=== PATIENT | male | born 1965 | race Caucasian/White ===

== ENCOUNTER 2025-02-04 11:54 | Emergency (ER) | payer OTHER, SELFPAY ==
[2025-02-04 12:09] VITALS: BP 119/90
--- NOTE | 2025-02-04 13:53 | ED.GENMED ---
History of Present Illness
General
Chief Complaint: Musculo-Skeletal Complaint
Source: patient
Exam Limitations: none
Time Seen by Provider: 02/04/25 13:35
Nursing documentation reviewed up to this point in time: agreed with
History of Present Illness
History of Present Illness:
59-year-old male presenting to the emergency department today with concerns of right upper arm discomfort over the past 4 days after tripping and falling landing directly on his right arm 4 days ago ongoing discomfort since. Has noticed bruising
since. Did not hit his head did not lose consciousness not on blood thinners.
Review of Systems
Review of Systems
Allergies reviewed?: Yes
All Other Systems: ROS reviewed and negative except as documented in HPI and ROS
Phy Exam
Physical Exam
Physical Exam:
GENERAL: Alert , in no apparent distress
EYE: pupils equal and reactive
NECK: Supple, no significant adenopathy.
ENT: o/p clr, mmm.
CARDIAC: Regular rate and rhythm .
LUNGS: Clear breath sounds bilaterally, no acute respiratory distress, no wheezes/rales/rhonchi
ABDOMEN: Soft, without focal tenderness, no r/g, no cvat
NEUROLOGICAL: Alert and oriented, no focal neuro deficits
SKIN: Warm and dry, skin intact.
MUSCULOSKELETAL: Significant ecchymosis and tenderness to palpation to the proximal right upper arm, no discomfort to the shoulder girdle, scapula or clavicle. No pain to the elbow forearm wrist or hand. Significant discomfort and inability to
abduct the right shoulder, well perfused.
PSYCH: Normal and appropriate interaction.
Course
Orders/Labs/Results
Orders:
Orders
02/04/25 12:12
Humerus, Right 2 Views [CR Humerus - Right Min 2 View*] Urgent
Comment:
Reason For Exam: fall
02/04/25 13:52
Sling Right-Treatment ONCE
Vital Signs
Initial and Last Documented VS:
Initial Vital Signs
Temp Pulse Resp BP Pulse Ox
98.2 F 85 16 119/90 98
02/04/25 12:09 02/04/25 12:02/04/25 12:02/04/25 12:09 02/04/25 12:09
Last Documented Vital Signs
Temp Pulse Resp BP Pulse Ox
98.2 F 85 16 119/90 98
02/04/25 12:09 02/04/25 12:09 02/04/25 12:09 02/04/25 12:09 02/04/25 12:09
MDM/Problems Addressed
MDM/Problems Addressed:
59-year-old male presenting to the emergency department today with concerns of right shoulder discomfort after trip and fall from 4 days ago. Ongoing ecchymosis since. Neuro vastly intact on examination distally. X-ray showing fracture to the
small humerus. Patient was placed in a sling otherwise advised for close orthopedic follow-up. Return precautions given.
*Critical Care Note
Total Time (30-74mins, 75-104mins- exclusive of procedures): Not Applicable
ED Attending Note
-
Portions of this chart may have been created with voice recognition software.� Occasional wrong word or��sound alike� substitutions may have occurred due to the inherent limitations of voice recognition software.
Discharge Plan
Departure
Patient Disposition: Home (Routine Discharge)
Date of Disposition: 02/04/25
Time of Disposition: 13:54
Patient with high blood pressure during this ER visit?: No
Condition: Good
Covid-19: Not Applicable
Discharge Problem:
Fracture of proximal end of humerus
Instructions: Shoulder or upper arm fracture
Referrals:
Jamshid Wren MD [Active] - Follow up in 5-7 days
Activity Restrictions/Additional Instructions:
You came to the emergency department today with concerns of shoulder discomfort. You are found to have a fracture of the proximal humerus. Please use the sling as well as Motrin and Tylenol to help with symptoms and follow-up closely with
orthopedics. Return for any worsening, new or concerning symptoms.
Interventions
Interventions:
*Risk Screen - Suicide Last Done: 02/04/25 12:09
*Neglect/Abuse Screening Last Done: 02/04/25 12:09
Discharge Date and Time
Print Language: SERBIAN
== END 2025-02-04 14:15 | disposition home or self-care (01) ==
LOC: EMR 11:54
PROVIDERS: EMERGENCY PHYSICIAN Student in an Organized Health Care Education/Training Program; FAMILY PHYSICIAN Family Medicine
DX: S42.201A Unspecified fracture of upper end of right humerus, initial encounter for closed fracture (principal); W19.XXXA Unspecified fall, initial encounter
CPT/HCPCS: 99283; 73060